=== PATIENT | female | born 1955 | race Caucasian/White ===

== ENCOUNTER 2016-11-10 15:30 | Emergency (ER) | payer OTHER ==
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
[~2016-11-10 15:30] MED LIST: CELEXA PO; CHOLESTEROL MED; DIOVAN HCT 160-1 TAB PO; DIOVAN HCT 160/1 TAB PO; LEVAQUIN PO; LORTAB 7.5-5001 TAB PO; PREVACID PO; ZOCOR PO
[2016-11-10] MEDS ORDERED: LISINOPRIL (15:37)
== END 2016-11-10 17:43 | disposition home or self-care (01) ==
LOC: SED 15:30
DX: S16.1XXA Strain of muscle, fascia and tendon at neck level, initial encounter (principal); S80.812A Abrasion, left lower leg, initial encounter; S80.811A Abrasion, right lower leg, initial encounter; S20.312A Abrasion of left front wall of thorax, initial encounter; F32.9 Major depressive disorder, single episode, unspecified; E78.5 Hyperlipidemia, unspecified; I10 Essential (primary) hypertension; Z23 Encounter for immunization; V43.62XA Car passenger injured in collision with other type car in traffic accident, initial encounter
CPT/HCPCS: 71020; 90471; 90715; 99283

== ENCOUNTER → 2017-01-22 | Outpatient (CLI) | payer BC ==
[~2017-01-22] MED LIST changes: +LISINOPRIL
--- NOTE | ~2017-01-22 | MY29 ---
[facility] A Service of [facility] RADIOLOGY TEXT RESULTS PATIENT: BERNICE BRIGHT LOCATION: [facility] : 53 UNIT #: [id number] AGE: [address]: Luciana Schwab APRN SEX: F ORDER DR: [id number] [facility] [address] [place], [place] [address] [id number] O MR#: [id number] Acc #: [id number] NAME: BERNICE BRIGHT. : 1955 SEX: F STUDY DATE/TIME: 01/22/2017 12:11 UNIT: [facility] ROOM: STUDY DESCRIPTION: MY LA NENA SCREENING W/ CAD BILAT Attending Physician: Luciana Schwab A.P.R.N. Referring Physician: uLciana Schwab A.P.R.N. Ordering Physician: Luciana Schwab A.P.R.N. Primary Care Physician: Luciana Schwab A.P.R.N. MEDICAL IMAGING REPORT This report is preliminary unless electronic signature is present EXAM Digital screening mammogram, 01/22/2017, [facility]. HISTORY 61-year-old woman; no risk elevation. Screening mammogram. COMPARISON 01/15/2012 FINDINGS Digital imaging of each breast was completed, utilizing screening protocol. Review includes FDA-approved CAD device. Breast parenchyma is heterogeneously dense with a small nodular distribution in each breast. Dominance is noted in the right breast. Subareolar duct prominence is present bilaterally. Occasional benign calcification in each breast. I see no interval occurring mass. There are no suspicious microcalcifications and no architectural deformity. IMPRESSION Benign mammogram. Annual screening recommended. Patients over the age of 40 are entered into a reminder system with target due date for the next mammogram. A result letter will also be sent to the patient. BIRADS: 2 Benign finding. Dictated by... Edis Galvez M.D. THIS IS AN ELECTRONICALLY VERIFIED REPORT [facility] A Service of [facility] RADIOLOGY TEXT RESULTS PATIENT: BERNICE BRIGHT LOCATION: [facility] : 53 UNIT #: [id number] AGE: [address]: Luciana Schwab APRN SEX: F ORDER DR: Edis Galvez M.D. at 01/25/2017 8:08 AM Eddi TD: 01/22/2017 17:22 JOB #: [id number] MEDICAL IMAGING REPORT Page 1 of 1 COPY
== END | disposition home or self-care (01) ==
LOC: CWCC 11:14
DX: Z12.31 Encounter for screening mammogram for malignant neoplasm of breast (principal)
CPT/HCPCS: G0202